=== PATIENT | female | born 1990 | race Caucasian/White ===

== ENCOUNTER 2016-06-27 14:37 | Emergency (ER) | payer OTHER ==
[~2016-06-27 14:37] MED LIST: PROPARACAINE 0.5% OPHTH DROPS 15 ML BTL ONE
[2016-06-27 14:46] VITALS: BP 117/67; PULSE 87; RESP 20; TEMP 98.2
[2016-06-27] MEDS ORDERED: PROPARACAINE 0.5% OPHTH DROPS 15 ML BTL LEFT EYE STA (14:55)
--- NOTE | 2016-06-27 14:57 | ED ---
Eye Problem HPI - General Chief complaint: Eye Problems Stated complaint: Eye Problem Time Seen by Provider: 06/27/16 14:44 Source: patient, RN notes reviewed Mode of arrival: ambulatory Limitations: no limitations - History of Present Illness Initial comments: 18-year-old female presents to the emergency department with a chief complaint of left eye irritation. Patient states is her last one or 2 days. Patient states that it is painful to open the eye it is painful to walk. Patient does admit to a history of scratch to the eye in the past. Patient states there is been no fever or chills with this. Patient denies any cough cold runny nose. Patient states that she hasn't had any drainage that she just continues to have pain and swelling around the high so she thought that she should be seen. Patient denies any actual injury. Patient does not wear contacts. Patient denies any recent fever, chills, shortness of breath, chest pain, back pain, abdominal pain, nausea vomiting, numbness or tingling, dysuria or hematuria, constipation or diarrhea, headaches or visual changes, or any other current symptoms. - Related Data Previous Rx's Medication Instructions Recorded Tobramycin 0.3% Ophth Oint [Tobrex 1 applic LEFT EYE TID #1 tube 06/27/16 0.3% Ophth Oint] Allergies Allergy/AdvReac Type Severity Reaction Status Date / Time codeine Allergy Rash/Hives Verified 06/27/16 14:46 Penicillins Allergy Rash/Hives Verified 06/27/16 14:46 Review of Systems ROS Statement: Those systems with pertinent positive or pertinent negative responses have been documented in the HPI. ROS Other: All systems not noted in ROS Statement are negative. Past Medical History Past Medical History: No Reported History History of Any Multi-Drug Resistant Organisms: None Reported Past Surgical History: Section, Tonsillectomy, Tubal Ligation Past Psychological History: No Psychological Hx Reported Smoking Status: Never smoker Past Alcohol Use History: None Reported Past Drug Use History: None Reported General Exam Limitations: no limitations General appearance: alert, in no apparent distress Head exam: Present: atraumatic, normocephalic, normal inspection Eye exam: Present: PERRL, EOMI, conjunctival injection, periorbital swelling. Absent: periorbital tenderness (Normal) Pupils: Present: normal accommodation Expanded Eyelids: Erythema: Left, Swelling: Left Pupils: Regular, Round: Bilateral Sclera/Conjunctival: Injection: Left Anterior chamber: Normal Inspection: Bilateral Posterior chamber: Deferred: Bilateral ENT exam: Present: normal exam, mucous membranes moist Neck exam: Present: normal inspection. Absent: tenderness, meningismus, lymphadenopathy Respiratory exam: Present: normal lung sounds bilaterally. Absent: respiratory distress, wheezes, rales, rhonchi, stridor Cardiovascular Exam: Present: regular rate, normal rhythm, normal heart sounds. Absent: systolic murmur, diastolic murmur, rubs, gallop, clicks Neurological exam: Present: alert, oriented X3 Psychiatric exam: Present: normal affect, normal mood Skin exam: Present: warm, dry, intact, normal color. Absent: rash Course Vital Signs 06/27/16 14:43 Temperature 98.2 F Pulse Rate 87 Respiratory 20 Rate Blood Pressure 117/67 O2 Sat by Pulse 98 Oximetry Procedures - Procedures Initial comment: Patient underwent with lamp examination as well as a slit lamp examination of the foot lamp examination a corneal abrasion was observed. Medical Decision Making - Medical Decision Making 26-year-old female presents for left eye irritation. Patient does appear to have a corneal abrasion. This and will put her on eye ointment. We discussed follow-up with ophthalmology return parameters. We discussed all the patient's questions. She stated that she understood and she is negative plan. She will be discharged home. Disposition Clinical Impression: Corneal abrasion, left Disposition: HOME SELF-CARE Condition: Stable Instructions: Corneal Abrasion (ED) Additional Instructions: Please use medication as discussed. Please follow up with family doctor if symptoms have not improved over the next two days. Please return to the emergency room if your symptoms increase or worsen or for any other concerns. Prescriptions: Tobramycin 0.3% Ophth Oint [Tobrex 0.3% Ophth Oint] 1 applic LEFT EYE TID #1 tube Referrals: Kirk Mccloud MD [Primary Care Provider] - 1-2 days Joseph Mane MD [STAFF PHYSICIAN] - 1-2 days Time of Disposition: 15:12
== END 2016-06-27 15:18 | disposition home or self-care (01) ==
LOC: EC 14:37
DX: S05.02XA Injury of conjunctiva and corneal abrasion without foreign body, left eye, initial encounter (principal); Z88.0 Allergy status to penicillin; X58.XXXA Exposure to other specified factors, initial encounter
CPT/HCPCS: 99283